=== PATIENT | male | born 1975 | race Caucasian/White ===

== ENCOUNTER 2024-12-20 17:39 | Emergency (ER) | payer OTHER ==
[2024-12-20] MEDS: Acetaminophen/HYDROcodone 325-5 MG Tab PO ONE (18:51)
[2024-12-20] MEDS: Ketorolac 15 MG/ML SDV IM ONE (18:52)
[2024-12-20] MEDS ORDERED: Acetaminophen/HYDROcodone 325-5 MG Tab ONE (20:00)
[2024-12-20] MEDS ORDERED: Ibuprofen 400 MG Tab ONE (20:00)
== END 2024-12-20 20:10 | disposition home or self-care (01) ==
LOC: LB.ED 17:39
DX: S82.892A Other fracture of left lower leg, initial encounter for closed fracture (principal); F17.200 Nicotine dependence, unspecified, uncomplicated; Z91.018 Allergy to other foods; Z79.899 Other long term (current) drug therapy; X50.9XXA Other and unspecified overexertion or strenuous movements or postures, initial encounter
CPT/HCPCS: 29515; 73610-LT; 96372; 99283; 99283-25; A9270-GY; J1885